=== PATIENT | female | born 1960 | race Caucasian/White ===

== ENCOUNTER 2024-10-21 08:38 | Emergency (ER) | payer MEDICARE ==
[~2024-10-21] VITALS: Ht 157.5 cm; Wt 72.6 kg
[2024-10-21] MEDS ORDERED: ACETAMINOPHEN ES 500 MG TABLET ONE (09:07)
[2024-10-21] MEDS: ACETAMINOPHEN ES 500 MG TABLET PO ONE (09:10)
[2024-10-21 11:06] VITALS: BP 136/75; TEMP 98.2; O2SAT 97
== END 2024-10-21 11:07 | disposition home or self-care (01) ==
LOC: ER 08:40
DX: S30.0XXA Contusion of lower back and pelvis, initial encounter (principal); M25.552 Pain in left hip; Z88.0 Allergy status to penicillin; Z88.2 Allergy status to sulfonamides; W10.9XXA Fall (on) (from) unspecified stairs and steps, initial encounter; Y93.89 Activity, other specified; Y92.89 Other specified places as the place of occurrence of the external cause; Y99.8 Other external cause status
CPT/HCPCS: 72100-TC; 72170-TC